=== PATIENT | female | born 1985 | race Caucasian/White ===

== ENCOUNTER → 2017-03-27 | Outpatient (CLI) | payer BC ==
[2017-03-27 19:36] LABS: URINE APPEARANCE CLEAR (CLEAR); URINE BILIRUBIN NEG (NEG); URINE COLOR YELLOW; URINE NITRITE NEG (NEG); URINE SPECIFIC GRAVITY 1.012 (1.000-1.030); UROBILINOGEN NEG (NEG)
[2017-03-27 20:24] LABS: MANUAL MICROSCOPIC REQUIRED? NO; REVIEW REQ? NO
== END | disposition home or self-care (01) ==
LOC: C.LABSPEC 17:40
PROVIDERS: ATTEND Obstetrics & Gynecology
DX: O34.219 Maternal care for unspecified type scar from previous cesarean delivery (principal)

== ENCOUNTER → 2017-04-03 | Outpatient (CLI) | payer BC ==
[2017-04-03 12:41] LABS: HEMATOCRIT 33.2 % (37-47); MEAN CELL VOLUME 88.1 fL (80-100); MEAN CORPUSCULAR HEMOGLOBIN 30.5 pg (25-34); MEAN CORPUSCULAR HGB CONC 34.6 g/dl (32-36); MEAN PLATELET VOLUME 9.8 fL (7.4-10.4); PLATELET COUNT 90 K/uL (130-400); RED BLOOD COUNT 3.77 M/uL (4.2-5.4); WHITE BLOOD COUNT 4.55 K/uL (4.8-10.8)
[2017-04-03 12:42] LABS: BASO % 0.2 %; BASO ABS # 0.01 K/uL (0-0.2); COMPLETE YES; EOS % 2.6 %; IG% 0.2 %; LYMPH % 25.7 %; LYMPH ABS # 1.17 K/uL (1.2-3.4); MONO % 6.8 %; NEUT % 64.5 %; PLT ESTIMATE DECREASED
[2017-04-06 13:45] LABS: CHLAMYDIA TRACH RNA*** NOT DETECTED (NOT DETECTED); GC (NEIS GONORRHOEAE)RNA** NOT DETECTED (NOT DETECTED)
== END | disposition home or self-care (01) ==
LOC: C.LAB1850 10:33
PROVIDERS: ATTEND Obstetrics & Gynecology
DX: O99.111 Other diseases of the blood and blood-forming organs and certain disorders involving the immune mechanism complicating pregnancy, first trimester (principal)

== ENCOUNTER → 2017-04-03 | Outpatient (CLI) | payer BC | END | disposition home or self-care (01) | LOC: C.PAPS 15:19 | PROVIDERS: ATTEND Obstetrics & Gynecology | DX: O99.111 Other diseases of the blood and blood-forming organs and certain disorders involving the immune mechanism complicating pregnancy, first trimester (principal) ==

== ENCOUNTER → 2017-06-03 | Outpatient (CLI) | payer BC ==
[2017-06-03 09:52] LABS: HEMATOCRIT 30.6 % (37-47); MEAN CELL VOLUME 91.3 fL (80-100); MEAN CORPUSCULAR HEMOGLOBIN 31.3 pg (25-34); MEAN CORPUSCULAR HGB CONC 34.3 g/dl (32-36); RED BLOOD COUNT 3.35 M/uL (4.2-5.4); WHITE BLOOD COUNT 6.79 K/uL (4.8-10.8)
[2017-06-03 10:17] LABS: MEAN PLATELET VOLUME 9.3 fL (7.4-10.4); PLATELET COUNT 86 K/uL (130-400)
[2017-06-03 10:20] LABS: GTGD 50 Grams
== END | disposition home or self-care (01) ==
LOC: C.LAB1850 09:01
PROVIDERS: ATTEND Obstetrics & Gynecology
DX: O99.112 Other diseases of the blood and blood-forming organs and certain disorders involving the immune mechanism complicating pregnancy, second trimester (principal); Z3A.00 Weeks of gestation of pregnancy not specified

== ENCOUNTER → 2017-08-26 | Outpatient (CLI) | payer OTHER ==
[2017-08-26 10:05] LABS: HEMATOCRIT 29.4 % (37-47); HEMOGLOBIN 10.1 g/dL (12.0-16.0); MEAN CELL VOLUME 93.6 fL (80-100); MEAN CORPUSCULAR HEMOGLOBIN 32.2 pg (25-34); MEAN CORPUSCULAR HGB CONC 34.4 g/dl (32-36); RED CELL DISTRIBUTION WIDTH CV 13.5 % (11.5-14.5); RED CELL DISTRIBUTION WIDTH SD 46.4 fL (36.4-46.3); WHITE BLOOD COUNT 6.88 K/uL (4.8-10.8)
[2017-08-26 10:11] LABS: MEAN PLATELET VOLUME 8.8 fL (7.4-10.4); PLATELET COUNT 86 K/uL (130-400)
[2017-08-26 10:26] LABS: EOS ABS # 0.14 K/uL (0-0.5); IG# 0.02 K/uL (0.00-0.02); LYMPH ABS # 1.24 K/uL (1.2-3.4); MONO % 6.8 %; MONO ABS # 0.47 K/uL (0.11-0.59); NEUT % 72.9 %; NEUT ABS # 5.01 K/uL (1.4-6.5)
== END | disposition home or self-care (01) ==
LOC: C.LAB1850 09:06
PROVIDERS: ATTEND Obstetrics & Gynecology
DX: Z34.83 Encounter for supervision of other normal pregnancy, third trimester (principal)

== ENCOUNTER → 2017-09-10 | Day surgery (SDC) | payer OTHER | END | disposition home or self-care (01) | LOC: C.ACU 10:00 | PROVIDERS: ATTEND Obstetrics & Gynecology | DX: D69.6 Thrombocytopenia, unspecified (principal); Z91.040 Latex allergy status ==

== ENCOUNTER → 2017-10-17 | Outpatient (CLI) | payer OTHER ==
[2017-10-17 09:35] LABS: HEMATOCRIT 28.9 % (37-47); HEMOGLOBIN 9.8 g/dL (12.0-16.0); MEAN CORPUSCULAR HEMOGLOBIN 31.2 pg (25-34); MEAN CORPUSCULAR HGB CONC 33.9 g/dl (32-36); RED CELL DISTRIBUTION WIDTH CV 12.6 % (11.5-14.5); RED CELL DISTRIBUTION WIDTH SD 42.3 fL (36.4-46.3); WHITE BLOOD COUNT 7.01 K/uL (4.8-10.8)
[2017-10-17 09:50] LABS: BASO % 0.1 %; BASO ABS # 0.01 K/uL (0-0.2); EOS % 1.7 %; EOS ABS # 0.12 K/uL (0-0.5); IG# 0.04 K/uL (0.00-0.02); LYMPH % 15.1 %; LYMPH ABS # 1.06 K/uL (1.2-3.4); MONO % 6.7 %; MONO ABS # 0.47 K/uL (0.11-0.59); NEUT % 75.8 %; NEUT ABS # 5.31 K/uL (1.4-6.5); PLATELET COUNT 82 K/uL (130-400)
== END | disposition home or self-care (01) ==
LOC: C.LAB1850 08:19
PROVIDERS: ATTEND Obstetrics & Gynecology
DX: O99.113 Other diseases of the blood and blood-forming organs and certain disorders involving the immune mechanism complicating pregnancy, third trimester (principal); Z3A.00 Weeks of gestation of pregnancy not specified

== ENCOUNTER 2017-11-16 00:47 | Inpatient (IN) | payer OTHER ==
[~2017-11-16] VITALS: Ht 172.7 cm; Wt 73.5 kg
[2017-11-16] MEDS ORDERED: LACTATED RINGER'S 1000ML 1,000 ML IV SCH (01:20)
[2017-11-16 01:35] LABS: HEMATOCRIT 31.4 % (37-47); HEMOGLOBIN 10.6 g/dL (12.0-16.0); MEAN CELL VOLUME 91.8 fL (80-100); MEAN CORPUSCULAR HGB CONC 33.8 g/dl (32-36); RED CELL DISTRIBUTION WIDTH CV 13.3 % (11.5-14.5); RED CELL DISTRIBUTION WIDTH SD 44.2 fL (36.4-46.3); WHITE BLOOD COUNT 8.92 K/uL (4.8-10.8)
[2017-11-16 01:38] LABS: MEAN PLATELET VOLUME 8.6 fL (7.4-10.4); PLATELET COUNT 74 K/uL (130-400)
[2017-11-16] MEDS ORDERED: PRENTAB26 PO (01:59)
[2017-11-16 02:01] VITALS: Ht 172.7 cm; Wt 73.5 kg
[2017-11-16] MEDS ORDERED: OXYTOCIN 30 UNITS/500ML NSS IV ONE (04:35)
[2017-11-16] MEDS ORDERED: HYDROCORTISONE ACETATE 25 MG SUPP PR PRN (05:15)
[2017-11-16] MEDS ORDERED: IBUPROFEN 600 MG TAB PO PRN (05:15)
[2017-11-16] MEDS ORDERED: OXYCODONE/ACETAMINOPHEN 5-325 TAB PO PRN (05:15)
[2017-11-16] MEDS ORDERED: SUPERCREAM 0.870 % 15GM JAR EXT PRN (05:15)
[2017-11-16] MEDS ORDERED: LANOLIN OINT EXT PRN (05:15)
[2017-11-16] MEDS ORDERED: ACETAMINOPHEN 325 MG TAB PO PRN (05:15)
[2017-11-16] MEDS ORDERED: BENZOCAINE 20% AER SPR 82.5 GM CAN EXT PRN (05:15)
[2017-11-16] MEDS ORDERED: OXYTOCIN 30 UNITS/500ML NSS IV PRN (05:15)
--- NOTE | 2017-11-16 06:17 | DELIVERY SUMMARY ---
DATE OF OPERATION: 11/16/2017 VAGINAL DELIVERY SUMMARY PREDELIVERY DIAGNOSES: 1. A 32-year-old G4, P2-0-1-2 at 41 weeks and 0 days. 2. History of section x1 with subsequent successful . 3. Idiopathic thrombocytopenia with platelets of 74 on arrival, they have been in the 80s throughout the . POSTDELIVERY DIAGNOSES: Same, plus precipitous delivery. ESTIMATED BLOOD LOSS: 300 mL. FINDINGS: Viable female . Apgars 8 and 9. Weight pending. Please see nursery records. COMPLICATIONS: Precipitous delivery. DISPOSITION: Stable and good. DESCRIPTION OF DELIVERY: I was called to the room by nursing staff and immediately responded to find the patient and father of baby in the bathroom of their labor and delivery room and the father had just delivered the baby per nursing report. The patient had been ambulating to the bathroom and did not realize that the patient was ready to deliver. Per report from nursing staff, the father delivered the baby, there was a loose nuchal cord that was not reduced and the cord was doubly clamped and cut. On my arrival into the room, the mother was sitting on the toilet and holding the baby. She was then helped to the bed in the labor and delivery room for delivery of the placenta. The placenta was delivered under active management, intact with a 3-vessel cord. Pitocin was given. The uterus became firm. The uterus and vagina were swept off all clots and debris. The cervix, vagina and perineum were inspected and a second-degree perineal laceration was noted and repaired in standard fashion with 3-0 Vicryl in a running stitch, and a left superficial periurethral laceration was noted and found to be hemostatic, and therefore, not repaired. Excellent hemostasis was achieved. The uterus was firm. The patient and baby are recovering in the room in stable and good condition. Throughout the delivery of the placenta, the patient was apologizing profusely, stating she did not think she was as close to delivery as she actually was and did not realize the baby was actively delivering. At the conclusion of the delivery, sponge, instruments, and needle counts were correct x2. I attest to the content of the Intraoperative Record and any orders documented therein. Any exception s are noted below.
[2017-11-16] MEDS: DOCUSATE SODIUM 100 MG CAP PO SCH ×2 (09:39→20:11)
[2017-11-16 11:50] VITALS: BP 108/67; PULSE 72; TEMP 36.4; O2SAT 100
[2017-11-16 15:50] VITALS: BP 106/70; PULSE 61; TEMP 36.6
[2017-11-16 20:00] VITALS: BP 109/69; PULSE 83; TEMP 36.4
[2017-11-17 00:20] VITALS: BP 102/69; PULSE 76; TEMP 36.7; O2SAT 99
[2017-11-17 03:30] VITALS: BP 95/59; PULSE 77; TEMP 36.5; O2SAT 97
[2017-11-17 07:08] LABS: HEMATOCRIT 26.8 % (37-47); HEMOGLOBIN 9.1 g/dL (12.0-16.0)
[2017-11-17 07:10] VITALS: BP 100/62; PULSE 82; TEMP 36.7
--- NOTE | 2017-11-17 08:33 | Progress Note ---
Subjective November 17, 2017. Subjective conversation w/ patient, physical exam Ambulation: ambulating normally Diet Tolerance: Regular Diet Feeding Type: Breast Feeding Objective Vital Signs Date Time Temp Pulse Resp B/P (MAP) Pulse Ox O2 Delivery O2 Flow Rate FiO2 11/17/17 03:30 36.5 77 16 95/59 (71) 97 Room Air 11/17/17 00:20 36.7 76 16 102/69 (80) 99 Room Air 11/17/17 00:20 99 Room Air 11/16/17 20:00 36.4 83 18 109/69 (82) Room Air 11/16/17 15:50 36.6 61 18 106/70 (82) Room Air 11/16/17 15:50 Room Air 11/16/17 11:50 100 Room Air 11/16/17 11:50 36.4 72 18 108/67 (81) 100 Room Air Physical Exam General Appearance: WELL-APPEARING, NO APPARENT DISTRESS Fundus: Firm, Non-Tender Extremities: no calf tenderness Laboratory Results Last 24 Hours Test 11/17/17 06:38 Hemoglobin 9.1 g/dL Hematocrit 26.8 % Assessment and Plan Post- Day#: 1 Continue Routine Care: - patient doing well - desires d/c - instructions given - f/u in 6 weeks
--- NOTE | 2017-11-17 08:35 | Discharge Instructions ---
Discharge Instructions Date of Service November 17, 2017. Admission Reason for Admission: LABOR Discharge Discharge Diagnosis / Problem: same Discharge Goals Goal(s): Routine recovery after delivery Medications Continue Dispensed Medications: supercream, dermaplast Activity Recommendations Activity Limitations: as noted below . Instructions / Follow-Up Instructions / Follow-Up ACTIVITY RECOMMENDATIONS: * Gradual return to full activity over the next 2-3 weeks. * No lifting - nothing heavier than baby over the next 2-3 weeks. * Do not engage in vigorous exercise, sexual activity or sports until cleared by your physician. * Do not drive or operate any motorized equipment until cleared by your physician. * You may shower/bathe daily. MEDICATIONS: For discomfort or pain, you may use Acetaminophen (Tylenol), Ibuprofen (Advil), or Naproxen (Aleve) following the package directions. For constipation you may use Colace following the package directions. BREAST CARE: If you are not breast feeding: * Wear a supportive bra 24 hours a day for one to two weeks. * Avoid stimulating your breasts and nipples as much as possible during the first few weeks after delivery. * When taking a shower, have the warm water hit your back, not breasts. * When your breasts feel full, apply ice packs. Usually three to four times a day helps ease the discomfort. * Take a mild pain medication (Tylenol / Motrin) when you are uncomfortable. If breast feeding: * Use breast milk to lubricate nipples. Lansinoh cream may be used for sore nipples. You do not need to remove cream prior to breast feeding. If using a different brand of cream, check the label for directions regarding removal of cream prior to nursing. * Wear a supportive bra. * If having problems with breasts or breast feeding, call a sales operations consultant or your health care provider. EPISIOTOMY CARE: After delivery, if you have an episiotomy (stitches), the following steps will ease discomfort and aid healing. * For the first 24 hours after delivery, place ice packs next to your episiotomy to help reduce swelling. * After the first 24 hour-period, sitz baths, either portable or in the tub, are suggested. A shower with a shower arm sprayed over the episiotomy may be comforting. * Darlene care should be done after each voiding and bowel movement. Squirt warm water from a plastic bottle over the perineum (region of the body between the anus and urinary opening) and pat dry. * Use Dermoplast to ease discomfort. Shake container. Kellogg directly over the episiotomy. Place a Tucks on a clean sanitary pad next to your episiotomy. SPECIAL CARE INSTRUCTIONS: When you are discharged from the hospital, it is important for you to follow the instructions listed below: * During the first week at home, you should be able to care for yourself and your baby. In addition, the usual light household activities are encouraged. * Limit your activities to the way you feel. Do not try to clean the house or move furniture. Be sensible. * If you actively engage in sports and have done so up until the time of your delivery, you may resume these activities as soon as you feel able. This may take up to one month or even longer. Use good judgment. * Continue to take your vitamins for at least six weeks after the of your baby. * Your diet need not be limited unless you were on a special diet before your delivery. Breast-feeding mothers need around 2500 calories per day and at least 64-80 ounces of fluid per day (8 to 10 glasses). * You should eat foods from the four major food groups. Crash diets or fad diets are to be avoided. Eating lean meats, fresh fruits and vegetables, low-fat dairy products, high fiber foods and a regular exercise program, will help you get back to your pre- weight without putting your health at risk. * Constipation is sometimes a problem after delivery. Take a mild laxative as needed. If breast feeding, Milk of Magnesia is acceptable to use. You may use a suppository or Fleets enema if no episiotomy. * A daily shower or tub bath is suggested. Be sure to thoroughly and gently dry the perineum. * A bloody vaginal discharge will usually continue until around four weeks post . A small amount of bleeding may continue for as long as six weeks. Vaginal discharge changes from the bright red bleeding after delivery to pink then brownish and finally yellowish-pink before becoming white and disappearing. * Bleeding may increase with activity. Your first period may come in 4-8 weeks. If you are breast feeding, your period may be delayed even longer. * Frierson (sex) can begin whenever both you and your partner feel comfortable and do not have any form of genital infection. It is recommended that you wait at least six weeks for internal and external healing to occur. If you have questions, please talk to your health care practitioner. A condom should be used to prevent infection and . * Foreplay, gentle intercourse and lubrication is very important the first several times to prevent pain. A water-based lubricant such as K-Y jelly or Astroglide may be used. * If you have RH negative blood and your baby is RH positive, you will receive RHOGAM by injection prior to discharge. The nurse will give you a card to keep with you that has the date and place that you received RHOGAM after delivery. * During your care, you had a Rubella screen done to check for the presence of rubella antibodies in your blood. If your test was negative, you will receive a Rubella vaccine prior to discharge. This vaccine may cause a fever, soreness at the injection site and flu-like symptoms. If these symptoms persist, notify your health care practitioner. is not advised for one month after a Rubella vaccine. * Verbalizes understanding of car seat law as reviewed with patient nursing. * Car Seat hand-out given and reviewed with patient by nursing. * Shaken baby information reviewed with patient by nursing. Call you doctor if: * Heavy bleeding (saturating several pads an hour) or passing clots the size of your fist. * A fever >101 degrees F (38.3 degrees C) on two occasions four hours apart and /or chills. * Unusual pain in the pelvic or vaginal areas. * "Baby Blues" lasting longer than two weeks. If you have any questions or concerns, call your health care practitioner at . FOLLOW UP VISIT: * Please call the office at to schedule a 6 week examination. It is important you keep this appointment. It is important for you to make arrangements for either yearly or twice yearly check-ups thereafter. Current Hospital Diet Patient's current hospital diet: Regular OB Diet Discharge Diet Recommended Diet: Regular Diet Pending Studies Studies pending at discharge: no Medical Emergencies . Who to Call and When: Medical Emergencies: If at any time you feel your situation is an emergency, please call 911 immediately. . Non-Emergent Contact Non-Emergency issues call your: [employer] Call Non-Emergent contact if: you have a fever, temperature is above 100.5 . . "Provider Documentation" section prepared by Bharat Askew. .
[2017-11-17] MEDS: DOCUSATE SODIUM 100 MG CAP PO SCH (08:48)
[2017-11-17 10:42] VITALS: BP_DIAS 62; PULSE 82; TEMP 36.7
[2017-11-17] MEDS ORDERED: BISACODYL 5 MG TABEC PO SCH (20:00)
== END 2017-11-17 11:15 | disposition home or self-care (01) | DRG 775 ==
LOC: C.LD 00:47 → C.OPB 00:47 → C.LD 01:21 → C.OPB 01:21 → C.OBG 11:26
PROVIDERS: ADMIT Obstetrics & Gynecology; ATTEND Obstetrics & Gynecology
PROC: 10E0XZZ Delivery of Products of Conception, External Approach (ICD-10-PCS; principal; 2017-11-16)
PROC: 0KQM0ZZ Repair Perineum Muscle, Open Approach (ICD-10-PCS; principal; 2017-11-16)
DX: O62.3 Precipitate labor (principal); O99.12 Other diseases of the blood and blood-forming organs and certain disorders involving the immune mechanism complicating childbirth; D69.3 Immune thrombocytopenic purpura; O70.1 Second degree perineal laceration during delivery; Z37.0 Single live birth; Z3A.41 41 weeks gestation of pregnancy